=== PATIENT | female | born 1985 | race Caucasian/White ===

== ENCOUNTER → 2017-03-01 | Day surgery (SDC) | payer OTHER ==
[~2017-03-01] VITALS: Ht 167.6 cm; Wt 91.2 kg
[~2017-03-01] MED LIST: CHLORHEXIDINE GLUCONATE 2 % 1 PACK (2 CLOTHS) TOPICAL PRN; DEXAMETHASONE SOD PHOS 4 MG/ML VIAL IV ONE; DEXAMETHASONE SOD PHOS 4 MG/ML VIAL ONE; DO NOT ADM ANY ANTICOAGULANT DRUGS PRN; FAMOTIDINE 20 MG/2 ML VIAL ONE; GLYCOPYRROLATE 1 MG/5 ML SYRINGE IV PUSH ONE; HEPARIN SODIUM - IV 10,000 UNITS/10 ML VIAL ONE; HEPARIN-NS/PF INJ 500 ML ONE; IOHEXOL 300 INJ 50 ML IV ONE; IOHEXOL 300 MG/ML 50 ML BTL (for RAD DIAG) IVCONTRAST ONE; LACTATED RINGER'S 1000 ML IV PRN; LIDOCAINE HCL 1% PF 5 ML SYRINGE OTHER ONE; METOPROLOL TARTRATE 25 MG TAB PO PRN; MIDAZOLAM HCL 2 MG/2 ML VIAL ONE; NEOSTIGMINE 3 MG/3 ML SYR IV ONE; ONDANSETRON HCL 4 MG/2 ML VIAL IV ONE; POVIDONE IODINE 5% (ANTISEPSIS KIT) 4 APPLICATIONS EACH NARE PRN; PROPOFOL 200 MG/20 ML AMP IV ONE; PROTAMINE SULFATE 50 MG/5 ML VIAL ONE; ROCURONIUM INJ 50 MG/5 ML SYRINGE IV PUSH ONE; SODIUM CHLORID 0.9% 500 ML IV PRN; XARE20TA PO; ceFAZolin 2 GM PREMIX 0 ML ONE
--- NOTE | 2017-03-01 06:36 | HHI.HP ---
History of Present Illness Chief Complaint: R LE pain, DVT and likely failed FV Stent History of Present Illness 31 yo otherwise healthy female with history of DVT about 6 years ago. Has been on anticoagulation since then. Has R leg pain that is refractory to compression , most c/w post-thrombotic syndrome. According to the patient, she had a femoral or iliac vein stent placed years ago. By recent duplex that stent is occluded. No wounds. Past/Family/Social History Past Medical History DVT Past Surgical History C section Social History nonsmoker Family History no hypercoagulable state Review of Systems Constitutional: DENIES: Fever, Chills Respiratory: DENIES: Shortness of breath Musculoskeletal: COMPLAINS OF: Stiffness Physical Exam Neuro: FARMER, resting comfortably HEENT: anicteric sclera Neck: trachea midline Heart: reg rate Lungs: clear Abdomen: NT Vascular: palpable pedal pulses Extremities: minimal edema, no wounds Caprini VTE Risk Assessment Caprini VTE Risk Assessment: No/Low Risk (score <= 1) Caprini Risk Assessment Model Point Value = 1 Point Value = 2 Point Value = 3 Point Value = 5 Age 41-60 Minor surgery BMI > 25 kg/m2 Swollen legs Varicose veins or History of unexplained or recurrent spontaneous Oral contraceptives or hormone replacement Sepsis (< 1 month) Serious lung disease, including pneumonia (< 1 month) Abnormal pulmonary function Acute myocardial infarction Congestive heart failure (< 1 month) History of inflammatory bowel disease Medical patient at bed rest Age 61-74 Arthroscopic surgery Major open surgery (> 45 min) Laparoscopic surgery (> 45 min) Malignancy Confined to bed (> 72 hours) Immobilizing plaster cast Central venous access Age >= 75 History of VTE Family history of VTE Factor V Leiden Prothrombin [id number] Lupus anticoagulant Anticardiolipin antibodies Elevated serum homocysteine Heparin-induced thrombocytopenia Other congenital or acquired thrombophilia Stroke (< 1 month) Elective arthroplasty Hip, pelvis, or leg fracture Acute spinal cord injury (< 1 month) Prophylaxis Regimen Total Risk Factor Score Risk Level Prophylaxis Regimen 0-1 Low Early ambulation 2 Moderate Order ONE of the following: *Sequential Compression Device (SCD) *Heparin 5000 units SQ BID 3-4 Higher Order ONE of the following medications: *Heparin 5000 units SQ TID *Enoxaparin/Lovenox 40 mg SQ daily (WT < 150 kg, CrCl > 30 mL/min) *Enoxaparin/Lovenox 30 mg SQ daily (WT < 150 kg, CrCl > 10-29 mL/min) *Enoxaparin/Lovenox 30 mg SQ BID (WT < 150 kg, CrCl > 30 mL/min) AND/OR *Sequential Compression Device (SCD) 5 or more Highest Order ONE of the following medications: *Heparin 5000 units SQ TID (Preferred with Epidurals) *Enoxaparin/Lovenox 40 mg SQ daily (WT < 150 kg, CrCl > 30 mL/min) *Enoxaparin/Lovenox 30 mg SQ daily (WT < 150 kg, CrCl > 10-29 mL/min) *Enoxaparin/Lovenox 30 mg SQ BID (WT < 150 kg, CrCl > 30 mL/min) AND *Sequential Compression Device (SCD) Assessment and Plan Plan R LE venogram and possible intervention The patient understands that the stent may be occluded and not able to be reopened. Discharge Planning anticipate d/c after procedure Josr Rangel MD Mar 01, 2017 06:36
--- NOTE | 2017-03-01 09:08 | HHI.PR ---
Immediate Post Op Note Procedure Date: Mar 01, 2017 Pre Op Diagnosis: R LE post-thrombotic syndrome Post Op Diagnosis: R LE post-thrombotic syndrome, occluded femoral vein stent Surgeon: Josr Rangel Rubber Mold Maker(s): none Procedure: 1. U/S guided access to R popliteal vein 2. R LE venogram Findings: occluded stent, unable to recanalize Complications: none Specimen(s) removed: none Estimated blood loss: 5mL Anesthesia: General Drains: None Fluids: 300mL IVF Patient to: PACU Patient Condition: Good Date/Time of Procedure: SEE SURGICAL CARE RECORD Josr Rangel MD Mar 01, 2017 09:08
[2017-03-01 10:45] VITALS: BP 120/75; PULSE 72; RESP 20; TEMP 98; O2SAT 100
--- NOTE | 2017-03-01 13:00 | MP ---
cc: JOSR RANGEL MD DATE OF SURGERY 03/01/2017 PREOPERATIVE DIAGNOSIS Occluded right femoral vein stent. POSTOPERATIVE DIAGNOSIS Occluded right femoral vein stent. PROCEDURE 1. Ultrasound-guided access to popliteal veins. 2. Right lower extremity venogram. ATTENDING SURGEON Josr Rangel MD RESIDENT SURGEON None. ANESTHESIA General. INDICATION Mrs. Guardado is a 31-year-old lady who 6 years ago had femoral vein and iliac vein stents placed elsewhere. She has postthrombotic syndrome and recurrent pain despite wearing compression hose. Preoperative duplex suggested she had occluded stents and she was brought to the operating room for an attempt at recanalization. DESCRIPTION OF PROCEDURE Informed consent was obtained from the patient and she was taken to the operating room. Appropriate time-out was taken to endure the patient's identity, the operative site and planned procedure. No antibiotics were necessary as this is a clean procedure without planned implantation of any foreign object. Everyone in the room agreed with the time-out and we proceeded. After induction of general anesthesia the patient placed in prone position with all pressure points carefully padded. Her right popliteal fossa was prepped and draped and under ultrasonographic guidance the distal popliteal vein was accessed with 21-gauge micropuncture needle; this was exchanged using Seldinger technique for a micropuncture sheath through which a 0.05 Glidewire was introduced and the micropuncture sheath was exchanged for a 4-Tajik sheath. The Glidewire and then a stiffened Glidewire and a Berenstein catheter as well as a CXI catheter were used to attempt to recanalized her femoral vein. Were able to recanalized the femoral vein up to the level of the stent and indeed for several cm into the femoral vein stent but not past this. The wire, catheter and sheath were removed and pressure was held for hemostasis. There were no complications. I was present and scrubbed and performed the entire procedure. INTERPRETATION OF IMAGES The patient has a patent popliteal vein that ends several cm caudal to the femoral vein. There was what appears to be very chronic-appearing thrombus and well-formed collaterals. MD DEBORA Rodríguez/SHIRLENE /12:29 PM /12:40 PM
== END | disposition home or self-care (01) ==
LOC: HSDC 05:52
PROVIDERS: ATTEND Surgery
DX: I87.001 Postthrombotic syndrome without complications of right lower extremity (principal)
CPT/HCPCS: 01916; 36005; 75710; 86850; 86900; 86901; C1769; J1100; J1644; J2250; J2405; J2710; J3010; Q9967; J0690; J2720